=== PATIENT | female | born 2000 | race Hispanic/Latino ===

== ENCOUNTER 2023-02-21 01:26 | Emergency (ER) | payer OTHER ==
[~2023-02-21] VITALS: Ht 160 cm; Wt 75.0 kg
[2023-02-21] MEDS ORDERED: AMOXICILLIN 500 MG CAP PO ONE (07:15)
[2023-02-21] MEDS ORDERED: OFLO5DRO OU (07:29)
[2023-02-21] MEDS ORDERED: AMOX875T PO (07:29)
[2023-02-21 07:46] VITALS: BP 126/60; TEMP 97; O2SAT 99
[2023-02-21] MEDS ORDERED: IBUPROFEN 600MG TAB PO ONE (08:00)
== END 2023-02-21 08:08 | disposition home or self-care (01) ==
LOC: M ED 01:26
DX: J02.9 Acute pharyngitis, unspecified (principal); H10.33 Unspecified acute conjunctivitis, bilateral; Z79.2 Long term (current) use of antibiotics; Z79.899 Other long term (current) drug therapy

== ENCOUNTER → 2024-12-29 | Outpatient (CLI) | payer OTHER ==
[~2024-12-29] MED LIST: AMOX875T PO; OFLO5DRO OU
== END ==
LOC: M WUC 09:52
PROVIDERS: ATTEND Student in an Organized Health Care Education/Training Program
DX: M54.50 Low back pain, unspecified (principal)